=== PATIENT | male | born 1995 | race Caucasian/White ===

== ENCOUNTER 2019-07-25 10:46 | Emergency (ER) | payer SELFPAY ==
[2019-07-25] MEDS ORDERED: LIDOCAINE 1% W/ EPINEPHRINE 20 ML VIAL INJ ONE (11:06)
[2019-07-25] MEDS ORDERED: LIDOCAINE 1% 10 ML VIAL INJ ONE (11:08)
[2019-07-25 11:30] VITALS: O2SAT 97
--- NOTE | 2019-07-25 11:47 | ED.PDOC ---
History of Present Illness - General Chief Complaint: Skin/Abrasion/Tear Stated Complaint: Swollen Right Thumb Time Seen by Provider: 07/25/19 11:44 Source: patient Exam Limitations: no limitations - History of Present Illness Initial Comments: 24 yo otherwise healty M who presents for abscess to R thumb onset 5 days ago and R inner thigh onset 2 days ago. Reports previous hx of similar sx however has never needed any I&D and they resolve on their own. Does not shave but has frequent ingrown hairs. States he tried to pop the one on his thumb with a clean needle but could not tolerate the pain. Denies f/c, cough, SOB, body aches, recent travel, exposure to anyone with COVID-19. Allergies/Adverse Reactions: Allergies NO KNOWN ALLERGY Allergy (Unverified 10/19/14 16:07) Home Medications: Ambulatory Orders Doxycycline Hyclate [Doxycycline Hyclate Dr] 100 mg PO BID 10 Days #20 tab 07/25/19 Review of Systems - Review of Systems Constitutional: Denies: chills, fever Respiratory: Denies: cough, short of breath Cardiology: Denies: chest pain Skin: States: other - abscess ; right thumb and right inner thigh Neurological: Denies: numbness, weakness Endocrine: Denies: increased thirst, increased urine Hematologic/Lymphatic: Denies: easy bleeding, easy bruising Past Medical History (General) - Patient Medical History Hx Stroke: No Hx Asthma: Yes Hx of COPD: No Hx Cardiac Disorders: No Hx Congestive Heart Failure: No Hx Pacemaker: No Hx Hypertension: No Hx Thyroid Disease: No Hx Diabetes: No Hx Cancer: No Hx Hepatitis C: No - Vaccination History Hx Tetanus, Diphtheria Vaccination: No Hx Influenza Vaccination: No Hx Pneumococcal Vaccination: No - Social History Hx Tobacco Use: Yes Hx Alcohol Use: No Hx Substance Use: No Hx Substance Use Treatment: No Hx Depression: No - Female History Patient : No - Triage Comment ED Triage Comment: Patient has approximately 2cm abscess right thumb 10/10 pain, patient also has approximatley 4cm abscess right inner thigh pain 7/10. Family Medical History - Family History Grandparents Living Status: Still Living Hx Family Diabetes: Yes Physical Exam - Physical Exam General Appearance: Alert, Comfortable, No apparent distress, Well Developed, Well Nourished, Other - Obese Neck: full range of motion Respiratory: no respiratory distress, no accessory muscle use Cardiovascular/Chest: normal peripheral pulses, regular rate, rhythm Skin Exam: rash - Felon to R thumb, no paronychia. R inner thigh with 4cm area of erythema, warmth, induration, with central fluctuance. No drainage. Progress - Progress Progress: 07/25/19 11:50 I have explained and reviewed all results with the pt. I explained that emergent conditions may arise and to return to the ER for new, worsening, or any persistent conditions. I've explained the importance of f/u for recheck. All questions and concerns addressed at this time. Pt understands and agrees with plan. Pt well appearing, NAD, is stable for discharge. Teresa Phipps MD Emergency Medicine Physician Billing Number [id number] Procedures - Incision and Drainage #1 Site: R thumb Procedure and Prep: betadine prep Blade Size: 11 Procedure Comments: Moderate purulent draiange. Tolerated well, no immediate c omplications. #2 Site: R inner thigh Procedure and Prep: betadine prep Blade Size: 11 Procedure Comments: Minimal purulent draiange, tolerated well, no immediate complications. Departure - Departure Clinical Impression: Felon of finger of right hand, Abscess of right thigh Time of Disposition: 11:53 Disposition: Discharge to Home or Self Care Health Concerns: Condition:stable Departure Forms: ED Discharge - Pt. Copy, Patient Portal Self Enrollment Instructions: Abscess Incision and Drainage (DC) Referrals: Angel Tse III, MD [Primary Care Provider] - 1-2 Days Prescriptions: Doxycycline Hyclate [Doxycycline Hyclate Dr] 100 mg PO BID 10 Days #20 tab Home Medications: Ambulatory Orders Doxycycline Hyclate [Doxycycline Hyclate Dr] 100 mg PO BID 10 Days #20 tab 07/25/19 Additional Instructions: Follow up: [facility] As needed, if symptoms worsen
[2019-07-25 12:38] VITALS: BP 130/98; TEMP 97.7
== END 2019-07-25 13:00 | disposition home or self-care (01) ==
LOC: ER 10:46
DX: L03.011 Cellulitis of right finger (principal); L02.415 Cutaneous abscess of right lower limb; F17.200 Nicotine dependence, unspecified, uncomplicated